=== PATIENT | male | born 1940 | race Caucasian/White ===

== ENCOUNTER 2022-02-22 07:45 | Outpatient (CLI) | payer MEDICARE, OTHER | END 2022-02-22 07:46 | disposition home or self-care (01) | LOC: TBSIIMAG 07:45 | PROVIDERS: ATTEND Physician Assistant Surgical | DX: M48.062 Spinal stenosis, lumbar region with neurogenic claudication (principal); R26.81 Unsteadiness on feet; R29.2 Abnormal reflex; M47.16 Other spondylosis with myelopathy, lumbar region; N20.0 Calculus of kidney; M47.817 Spondylosis without myelopathy or radiculopathy, lumbosacral region; M47.15 Other spondylosis with myelopathy, thoracolumbar region; M47.14 Other spondylosis with myelopathy, thoracic region; M47.12 Other spondylosis with myelopathy, cervical region | CPT/HCPCS: 72120; 72141; 72146; 72148 ==

== ENCOUNTER 2022-04-10 10:05 | Outpatient (CLI) | payer MEDICARE, OTHER ==
[2022-04-10 11:45] LABS: Hemoglobin 11.4 g/dL (13.5-17.5); Mean Corpuscular HGB CONC 32.8 g/dL (32.0-36.0); Mean Corpuscular Hemoglobin 30.4 pg (27.0-33.0); Mean Corpuscular Volume 92.8 fl (81.2-95.1); Platelet Count 208 10x3/uL (150-450); RBC Distribution Width 13.2 % (11.5-14.5); Red Blood Cell (RBC) Count 3.75 10x6/uL (4.32-5.72); White Blood Cell (WBC) Count 5.1 10x3/uL (3.5-10.5)
[2022-04-10 12:06] LABS: PTT 24.5 sec (22.0-33.0); Prothrombin Time 10.5 sec (9.5-12.1)
== END 2022-04-10 10:06 | disposition home or self-care (01) ==
LOC: LABBT 10:05
PROVIDERS: ATTEND Neurological Surgery
DX: Z01.812 Encounter for preprocedural laboratory examination (principal); M48.061 Spinal stenosis, lumbar region without neurogenic claudication
CPT/HCPCS: 85027; 85610; 85730

== ENCOUNTER 2022-04-11 06:52 | Day surgery (SDC) | payer MEDICARE, OTHER ==
[2022-04-11] MEDS ORDERED: Thrombin 5000 UNITS/5 ML VIAL ONE (07:04)
[2022-04-11] MEDS ORDERED: Vancomycin 1 GM VIAL ONE (07:04)
[2022-04-11] MEDS ORDERED: Neomycin-Polymyxin 1 ML AMP ONE (07:04)
[2022-04-11] MEDS ORDERED: Bupivacaine HCl 0.5%/Epinephrine 1:200,000/PF 30 ml Vial ONE (07:04)
[2022-04-11] MEDS ORDERED: CEFAZOLIN 2 GM VIAL ONE (07:27)
[2022-04-11] MEDS ORDERED: Sodium Chloride 0.9% 100 ML ONE (07:27)
[2022-04-11] MEDS ORDERED: fentaNYL PF 100 MCG/2 ML SYRINGE ONE ×2 (07:56→10:12)
[2022-04-11] MEDS ORDERED: Pantoprazole 40 MG VIAL ONE (07:56)
[2022-04-11] MEDS ORDERED: Famotidine/PF 20 mg/2ml Vial ONE (07:56)
[2022-04-11 08:02] VITALS: BMI 29.7
[2022-04-11] MEDS ORDERED: Rocuronium Bromide 10 MG/ML (10ML VIAL) ONE (08:11)
[2022-04-11] MEDS ORDERED: NEOSTIGMINE 3 MG/3 ML SYR 3 MG/3 ML SYRINGE ONE (08:11)
[2022-04-11] MEDS ORDERED: PROPOFOL 200 MG/20 ML VIAL ONE (08:11)
[2022-04-11] MEDS ORDERED: Lidocaine 1% PF 5 ML VIAL ONE (08:11)
[2022-04-11] MEDS ORDERED: PHENYLEPHRINE-NS 100 MCG/ML 10 ML SYRINGE ONE (08:11)
[2022-04-11] MEDS ORDERED: Glycopyrrolate 0.2 MG/ML 5 ML SYRINGE ONE (08:11)
[2022-04-11] MEDS ORDERED: Ondansetron PF 4 MG/2 ML Vial ONE (08:11)
[2022-04-11] MEDS ORDERED: SUGAMMADEX SODIUM 200 MG/2 ML VIAL ONE (10:12)
[2022-04-11] MEDS ORDERED: Fentanyl 100 MCG/2 ML VIAL ONE ×2 (10:32→11:01)
[2022-04-11] MEDS ORDERED: Tamsulosin HCl 0.4 MG CAP ONE (11:12)
[2022-04-11] MEDS ORDERED: HYDROcodone/Acetaminophen 5/325 mg Tablet ONE (12:34)
== END 2022-04-11 14:05 | disposition home or self-care (01) ==
LOC: SDC 06:52
PROVIDERS: ATTEND Neurological Surgery
PROC: 01NB0ZZ Release Lumbar Nerve, Open Approach (ICD-10-PCS; principal; 2022-04-11)
DX: M48.062 Spinal stenosis, lumbar region with neurogenic claudication (principal); M45.4 Ankylosing spondylitis of thoracic region; M45.5 Ankylosing spondylitis of thoracolumbar region; M45.6 Ankylosing spondylitis lumbar region; E78.00 Pure hypercholesterolemia, unspecified; I10 Essential (primary) hypertension; K21.9 Gastro-esophageal reflux disease without esophagitis; Z86.16 Personal history of COVID-19; Z87.891 Personal history of nicotine dependence; Z79.02 Long term (current) use of antithrombotics/antiplatelets; Z79.82 Long term (current) use of aspirin; Z79.899 Other long term (current) drug therapy; Z88.5 Allergy status to narcotic agent
CPT/HCPCS: 93005; 93010; C9113; J2405; J2704; J3010; J3370; J3490; S0028

== ENCOUNTER 2022-04-12 15:58 | Inpatient (IN) | payer MEDICARE, OTHER ==
[2022-04-12 16:45] LABS: Bacteria/HPF None Seen HPF (None Seen); Bilirubin Negative (Negative); Blood, Urine Trace (Negative); Clarity Clear (Clear); Glucose, Urine (Dipstick) Normal (Negative); Ketone, Urine Negative (Negative); Leukocyte Negative Leu/uL (Negative); Nitrite Negative (Negative); Protein, Urine (Dipstick) Negative (Neg-Trace); Specific Gravity, Urine 1.006 (1.002-1.036); Squamous Epithelial None Seen HPF (0-3); Urobilinogen Normal mg/dL (Less than 2); WBC/HPF None Seen HPF (0-3)
[2022-04-12 16:48] LABS: #Eosinphils 0.3 thou/uL (0.0-0.7); #Lymphocytes 1.7 thou/uL (1.20-3.40); #Monocytes 0.8 thou/uL (0.11-0.59); #Neutrophils 4.6 thou/uL (1.40-6.50); %Basophils 0.3 % (0.0-1.0); %Eosinophils 4.2 % (0.0-10.0); %Lymphocytes 22.8 % (21.0-51.0); %Monocytes 10.3 % (0.0-10.0); %Neutrophils 62.4 % (42.0-75.0); Mean Corpuscular Hemoglobin 31.6 pg (27.0-31.0); Mean Corpuscular Volume 92.8 fl (78.0-98.0); Mean Platelet Volume 7.5 fL (7.4-10.4); Platelet Count 151 10x3/uL (130-400); RBC Distribution Width 12.6 % (11.5-14.5); Red Blood Cell (RBC) Count 3.15 mill/uL (4.70-6.10); White Blood Cell (WBC) Count 7.3 10x3/uL (4.8-10.8)
[2022-04-12 17:10] LABS: ALT (SGPT) 12 U/L (8-55); AST (SGOT) 19 U/L (5-34); Albumin 3.5 g/dL (3.4-4.8); Alkaline Phosphatase 104 U/L (40-110); Anion Gap 11 mmol/L (10-20); BUN (Urea Nitrogen) 13 mg/dL (8.4-25.7); Bilirubin, Total 1.5 mg/dL (0.2-1.2); CK (CPK) 267 U/L (30-200); Calc. Creatinine Clearance 0 mL/min (70-130); Calcium 8.4 mg/dL (7.8-10.44); Carbon Dioxide 23 mmol/L (23-31); Chloride 97 mmol/L (98-107); Estimated GFR 53; Globulin 2.6 g/dL (2.4-3.5); Glucose 96 mg/dL (83-110); Potassium 4.2 mmol/L (3.5-5.1); Protein, Total 6.1 g/dL (5.8-8.1); Sodium 127 mmol/L (136-145)
[2022-04-12] MEDS ORDERED: Bisacodyl 5 MG TAB PO PRN (19:24)
[2022-04-12] MEDS ORDERED: Acetaminophen 325 MG TAB PO PRN (19:24)
[2022-04-12] MEDS ORDERED: Calcium Carbonate 500 MG ChewTAB PO PRN (19:24)
[2022-04-12] MEDS ORDERED: Bisacodyl 10 MG SUPP PR PRN (19:24)
[2022-04-12] MEDS ORDERED: Senokot S 8.6-50 MG TAB PO PRN (19:24)
[2022-04-12] MEDS ORDERED: Famotidine 20 MG TAB PO PRN (20:04)
[2022-04-12] MEDS ORDERED: Famotidine 20 MG TAB ONE (20:37)
[2022-04-12] MEDS: Atorvastatin Calcium 40 MG TAB PO SCH (22:12)
[2022-04-12] MEDS: Lisinopril 20 MG TAB PO SCH (22:12)
[2022-04-12] MEDS: Carvedilol 3.125 MG TAB PO SCH (22:12)
[2022-04-12] MEDS: Acetaminophen 500 MG TAB PO PRN (22:12)
[2022-04-12] MEDS: Sodium Chloride 0.9% 1,000 ML IV SCH (22:12)
[2022-04-12 22:38] LABS: Creatinine, Urine 45.12 mg/dL (63-166)
[2022-04-13] MEDS: Cephalexin 250 MG CAP PO SCH ×4 (00:28→17:53)
[2022-04-13 05:41] LABS: #Eosinphils 0.2 thou/uL (0.0-0.7); #Lymphocytes 0.8 thou/uL (1.20-3.40); #Monocytes 0.7 thou/uL (0.11-0.59); #Neutrophils 3.9 thou/uL (1.40-6.50); %Basophils 0.4 % (0.0-1.0); %Eosinophils 2.9 % (0.0-10.0); %Monocytes 12.4 % (0.0-10.0); %Neutrophils 69.2 % (42.0-75.0); Mean Corpuscular Hemoglobin 32.3 pg (27.0-31.0); Mean Corpuscular Volume 92.4 fl (78.0-98.0); Mean Platelet Volume 7.7 fL (7.4-10.4); Platelet Count 127 10x3/uL (130-400); RBC Distribution Width 12.8 % (11.5-14.5); Red Blood Cell (RBC) Count 3.09 mill/uL (4.70-6.10); White Blood Cell (WBC) Count 5.6 10x3/uL (4.8-10.8)
[2022-04-13 06:05] LABS: Anion Gap 12 mmol/L (10-20); BUN (Urea Nitrogen) 10 mg/dL (8.4-25.7); Calc. Creatinine Clearance 70 mL/min (70-130); Calcium 8.6 mg/dL (7.8-10.44); Carbon Dioxide 25 mmol/L (23-31); Chloride 104 mmol/L (98-107); Estimated GFR 70; Glucose 114 mg/dL (83-110); Potassium 4.1 mmol/L (3.5-5.1); Sodium 137 mmol/L (136-145)
[2022-04-13] MEDS: Sodium Chloride 0.9% 1,000 ML IV SCH (06:22)
[2022-04-13] MEDS: Lisinopril 20 MG TAB PO SCH ×2 (08:57→20:52)
[2022-04-13] MEDS: Aspirin 81 mg Enteric Coated Tablet PO SCH (08:57)
[2022-04-13] MEDS: Amlodipine 5 MG TAB PO SCH (08:57)
[2022-04-13] MEDS: Carvedilol 3.125 MG TAB PO SCH ×2 (08:57→20:52)
[2022-04-13 14:32] VITALS: BMI 30.4
[2022-04-13 15:48] LABS: Anion Gap 12 mmol/L (10-20); BUN (Urea Nitrogen) 9 mg/dL (8.4-25.7); Calc. Creatinine Clearance 74 mL/min (70-130); Calcium 8.6 mg/dL (7.8-10.44); Carbon Dioxide 25 mmol/L (23-31); Chloride 103 mmol/L (98-107); Estimated GFR 78; Glucose 115 mg/dL (83-110); Potassium 3.6 mmol/L (3.5-5.1); Sodium 136 mmol/L (136-145)
[2022-04-13] MEDS ORDERED: Ondansetron PF 4 MG/2 ML Vial IVP PRN (19:45)
[2022-04-13] MEDS: Atorvastatin Calcium 40 MG TAB PO SCH (20:51)
[2022-04-13] MEDS: Acetaminophen 500 MG TAB PO PRN (21:04)
[2022-04-13] MEDS ORDERED: Melatonin 3 MG TAB PO PRN (23:39)
[2022-04-13] MEDS ORDERED: hydrOXYzine 25 MG TAB PO SCH (23:59)
[2022-04-14 06:28] LABS: #Eosinphils 0.3 thou/uL (0.0-0.7); #Lymphocytes 1.2 thou/uL (1.20-3.40); #Monocytes 0.8 thou/uL (0.11-0.59); #Neutrophils 4.3 thou/uL (1.40-6.50); %Basophils 0.4 % (0.0-1.0); %Eosinophils 3.9 % (0.0-10.0); %Lymphocytes 17.9 % (21.0-51.0); %Monocytes 12.2 % (0.0-10.0); %Neutrophils 65.6 % (42.0-75.0); Hemoglobin 10.7 g/dL (14.0-18.0); Mean Corpuscular HGB CONC 34.2 g/dL (32.0-36.0); Mean Corpuscular Hemoglobin 31.5 pg (27.0-31.0); Mean Corpuscular Volume 92.3 fl (78.0-98.0); Mean Platelet Volume 7.8 fL (7.4-10.4); Platelet Count 160 10x3/uL (130-400); RBC Distribution Width 12.9 % (11.5-14.5); Red Blood Cell (RBC) Count 3.38 mill/uL (4.70-6.10); White Blood Cell (WBC) Count 6.6 10x3/uL (4.8-10.8)
[2022-04-14 06:49] LABS: Anion Gap 13 mmol/L (10-20); BUN (Urea Nitrogen) 9 mg/dL (8.4-25.7); Calc. Creatinine Clearance 80 mL/min (70-130); Calcium 8.9 mg/dL (7.8-10.44); Carbon Dioxide 25 mmol/L (23-31); Chloride 102 mmol/L (98-107); Estimated GFR 86; Glucose 101 mg/dL (83-110); Potassium 3.6 mmol/L (3.5-5.1); Sodium 136 mmol/L (136-145)
[2022-04-14] MEDS: Acetaminophen 500 MG TAB PO PRN ×2 (09:01→14:38)
[2022-04-14] MEDS: Aspirin 81 mg Enteric Coated Tablet PO SCH (09:01)
[2022-04-14] MEDS: Amlodipine 5 MG TAB PO SCH (09:02)
[2022-04-14] MEDS: Lisinopril 20 MG TAB PO SCH (09:02)
[2022-04-14] MEDS: Carvedilol 3.125 MG TAB PO SCH (09:02)
[2022-04-14 12:07] VITALS: BP 113/61; TEMP 97.8
== END 2022-04-14 15:00 | DRG 918 ==
LOC: ERS 15:58 → NEURO 18:43 → OBSVTOIN 04-14 10:06
PROVIDERS: ADMIT Student in an Organized Health Care Education/Training Program; ATTEND Student in an Organized Health Care Education/Training Program
DX: T42.8X1A Poisoning by antiparkinsonism drugs and other central muscle-tone depressants, accidental (unintentional), initial encounter (principal); E87.1 Hypo-osmolality and hyponatremia; N17.9 Acute kidney failure, unspecified; R53.1 Weakness; Z66 Do not resuscitate; Z20.822 Contact with and (suspected) exposure to COVID-19; I25.10 Atherosclerotic heart disease of native coronary artery without angina pectoris; E78.5 Hyperlipidemia, unspecified; K21.9 Gastro-esophageal reflux disease without esophagitis; K59.09 Other constipation; Z88.5 Allergy status to narcotic agent; Z79.899 Other long term (current) drug therapy; Z79.82 Long term (current) use of aspirin; Z79.02 Long term (current) use of antithrombotics/antiplatelets; Z86.16 Personal history of COVID-19; Z90.49 Acquired absence of other specified parts of digestive tract; Z98.890 Other specified postprocedural states; Z80.0 Family history of malignant neoplasm of digestive organs; Z87.891 Personal history of nicotine dependence
CPT/HCPCS: 36415; 71045; 80048; 80053; 81003; 81015; 82550; 82570; 83605; 83930; 83935; 84300; 84443; 84484; 85025; 93005; 97139; J2405; J7050; U0003; U0005